=== PATIENT | female | born 1950 | race Caucasian/White ===

== ENCOUNTER → 2016-04-06 | Day surgery (SDC) | payer OTHER ==
[~2016-04-06] MED LIST: Lidocain 1% EPI 1:100,000 * 30 ML MDV ONE
[2016-04-06 13:22] VITALS: BP 140/39
--- NOTE | 2016-04-07 00:03 | OP ---
DATE OF OPERATION: 04/06/16 [facility] DATE OF : 50 SURGEON: Dionicio Rawls MD ASSIGNMENT OFFICER: CANDELARIA Gonzalez ANESTHESIOLOGIST: None. ANESTHESIA: Local only with 1% lidocaine with epinephrine. PRE-OP DIAGNOSIS: Right carpal tunnel syndrome. POST-OP DIAGNOSIS: Right carpal tunnel syndrome. OPERATIVE PROCEDURE: Right open carpal tunnel release. INDICATIONS: Radha is a 65-year-old female with right carpal tunnel syndrome. She has tried nonoperative measures and has failed to improve. We talked about risks and benefits including the risk of nerve injury and chronic neuropathic pain amongst others. She elected to proceed. ESTIMATED BLOOD LOSS: 5 mL. COMPLICATIONS: None. FINDINGS: As expected. DESCRIPTION OF PROCEDURE: Radha was seen in the preoperative holding area and the correct side and site were marked. We then went ahead and had a time- out, and then I infiltrated the operative area with 1% lidocaine with epinephrine, a total of 15 mL. We then came back to the operating room after about 20 minutes and the arm was prepped and draped in the usual fashion and a formal time-out was performed. I then went ahead and made a longitudinal incision in the standard location of the carpal tunnel incision. Dissection was carried down through the skin, subcutaneous tissue, and palmar fascia. The transverse carpal ligament was identified and prior to opening it, I went ahead and made a subcutaneous tunnel just superficial to the deep antebrachial fascia to a level about 4 to 5 cm proximal to the volar wrist flexion crease. I then went ahead and released the transverse carpal ligament just off the radial border of the hook of the hamate. This was done from distal to proximal until I got to the proximal aspect of the incision. I then placed a Daniela retractor in the tunnel I had made and retracted the skin and subcutaneous tunnel superficially. Under direct visualization, I then used the tenotomy scissors to complete the remainder of the release of the transverse carpal ligament and the distal antebrachial fascia to a level about 4 to 5 cm proximal to the volar wrist flexion crease. I then went ahead and checked the release distally and proximally. There was absolutely no compression on the nerve. I then went ahead and irrigated the wound and closed the skin with some 4-0 nylon suture. She tolerated the procedure well and she was taken to the recovery room in stable condition. Please note that the wounds were dressed with Xeroform, 4x4's , sterile Webril, and an Gabriel wrap. [id number]/[facility] #: [id number] SANTY
== END | disposition home or self-care (01) ==
LOC: OREAST 11:22
PROVIDERS: ATTEND Orthopaedic Surgery Hand Surgery
DX: G56.01 Carpal tunnel syndrome, right upper limb (principal)

== ENCOUNTER 2019-10-04 11:17 | Observation (INO) ==
[2019-10-04] MEDS ORDERED: NS 0.9% 1000 ml BAG 1,000 ML IV ONE (11:28)
[2019-10-04 11:56] LABS: ABS Eosinophils 0.1 10^3/ul (0-0.6); ABS Lymphocytes 1.8 10^3/ul (1.0-4.8); ABS Monocytes 0.6 10^3/ul (0-0.8); ABS Neutrophils 4.8 10^3/ul (1.5-7.7); Eosinophil % 1.3 %; Hematocrit 44 % (35-47); Lymphocyte % 24.5 %; Mean Corpuscular HGB Conc 34 g/dL (31-36); Mean Corpuscular Hemoglobin 30 pg (27-31); Mean Corpuscular Volume 89 fL (80-97); Mean Platelet Volume 8.2 fL (7.4-10.4); Nucleated Red Blood Cells % 0.1; Platelet Count 215 10^3/uL (150-450); Red Blood Count 4.94 10^6 /uL (3.70-4.87); Red Cell Distribution Width 13 % (10-15); White Blood Count 7.3 10^3/uL (3.5-10.8)
[2019-10-04 12:10] LABS: Activated Partial Thrombo Time 33.7 seconds (26.0-38.0); INR 0.98 (0.82-1.09)
[2019-10-04 12:15] LABS: Albumin 4.2 g/dL (3.2-5.2); BUN/Creatinine Ratio 22.1 (8-20); Calcium 9.5 mg/dL (8.6-10.3); EGFR African American 103.8 (>60); EGFR Non-African American 85.8 (>60); Globulin 4.3 g/dL (2-4); HDL Cholesterol 55.3 mg/dL; Potassium 3.6 mmol/L (3.5-5.0); Total Bilirubin 0.4 mg/dL (0.2-1.0); Total Protein 8.5 g/dL (6.4-8.9)
[2019-10-04] MEDS ORDERED: Ondansetron 4 mg VIAL 2 MG/ML 2 ml VIAL IV PRN (14:03)
[2019-10-04 14:32] LABS: TSH Ultra Thyroid Stim Horm 3.71 mcIU/mL (0.34-5.60)
[2019-10-04] MEDS ORDERED: Enoxaparin 40 MG/0.4 ML SYR SUBCUT SCH (15:00)
[2019-10-04] MEDS ORDERED: Gadoteridol (CONTRAST) 279.3 MG/ML 10 ML IV ONE (16:38)
[2019-10-05] MEDS ORDERED: Meloxicam 7.5 mg TAB (NF) PO SCH (09:00)
[2019-10-05 13:01] VITALS: BP 133/74
== END 2019-10-05 14:10 | disposition home or self-care (01) ==
LOC: MEDTELE 11:17 → ED 11:17 → MEDTELE 15:52
PROVIDERS: ADMIT Internal Medicine; ATTEND Internal Medicine

== ENCOUNTER 2023-08-31 09:59 | Observation (INO) ==
[~2023-08-31 09:59] MED LIST changes: +Acetaminophen IV 1 GM/100ML 1,000 MG/100 ML BAG IV ONE; -Lidocain 1% EPI 1:100,000 * 30 ML MDV ONE; +Lidocaine 2% PF 5 ML VIAL ONE; +Propofol 10 MG/ML 20 ML BTL ONE
[2023-08-31] MEDS ORDERED: ceFAZolin 2 GM PREMIX 2 GM/50 ML BAG ONE (10:25)
[2023-08-31] MEDS ORDERED: Tranexamic Acid 1 GM/100ML BAG 2,000 MG/200 ML BAG IV ONE (10:25)
[2023-08-31 10:36] LABS: Rapid COVID-19 Molecular Undetected (Undetected)
[2023-08-31] MEDS ORDERED: Propofol 10 MG/ML 20 ML BTL ONE (10:50)
[2023-08-31] MEDS ORDERED: KETAMINE HCL 10 MG/ML 20 ml VIAL (200 MG) ONE (10:50)
[2023-08-31] MEDS ORDERED: ROPIVACAINE 5 MG/ML 30 ML BTL (0.5%) ONE ×2 (11:17→11:44)
[2023-08-31] MEDS ORDERED: Midazolam 2 mg/2 ml VIAL 1 mg/ml 2 ml VIAL (2 mg) ONE ×2 (11:17→12:24)
[2023-08-31] MEDS ORDERED: Buffered Lidocaine 1% SYRIN 1 ml INTRADERM ONE (11:41)
[2023-08-31] MEDS ORDERED: Metoclopramide 5 MG/ML VIAL (10 mg) IV PRN (11:41)
[2023-08-31] MEDS ORDERED: Naloxone 0.4 mg VIAL 0.4 mg/ml 1 ml VIAL IV PRN (11:41)
[2023-08-31] MEDS ORDERED: fentaNYL 100 mcg/2 ml 50 MCG/ML VIAL IV PRN (11:41)
[2023-08-31] MEDS ORDERED: Acetaminophen IV 1 GM/100ML 1,000 MG/100 ML BAG IV ONE ×2 (11:41→13:06)
[2023-08-31] MEDS ORDERED: Scopolamine 1 mg/72hr PATCH TRANSDERM ONE (11:41)
[2023-08-31] MEDS ORDERED: Ondansetron 4 mg VIAL 2 MG/ML 2 ml VIAL IV PRN ×2 (11:41→15:13)
[2023-08-31] MEDS ORDERED: NS 0.45% 1000 ml BAG 1,000 ML IV SCH (12:00)
[2023-08-31] MEDS ORDERED: Lactated Ringers 1000 ml BAG 1,000 ML IV SCH (12:00)
[2023-08-31] MEDS ORDERED: Dexamethasone IV 4 MG/ML VIAL 1 ml VIAL ONE (13:06)
[2023-08-31] MEDS ORDERED: Ondansetron 4 mg VIAL 2 MG/ML 2 ml VIAL ONE (13:06)
[2023-08-31] MEDS ORDERED: Lactulose 30 ml UDC PO PRN (15:13)
[2023-08-31] MEDS ORDERED: Magnesium Hydroxide LIQ 30 ML UDC PO PRN (15:13)
[2023-08-31] MEDS ORDERED: Ondansetron ODT 4 mg TAB 4 MG TAB PO PRN (15:13)
[2023-08-31] MEDS ORDERED: Calcium Carb (TUMS) 500 mg CHEW TAB PO PRN (15:13)
[2023-08-31] MEDS ORDERED: Morphine 2 MG/ML SYRINGE IV PRN (15:13)
[2023-08-31] MEDS: Lactated Ringers 1000 ml BAG 1,000 ML IV SCH (17:56)
[2023-08-31] MEDS: Magnesium Hydroxide LIQ 30 ML UDC PO SCH (22:08)
[2023-08-31] MEDS: ceFAZolin 2 GM in NS PREMIX 2 GM/100 ML BAG IVPB SCH (22:12)
[2023-09-01 05:51] LABS: Hematocrit 35.1 % (35-45); Hemoglobin 12.1 g/dL (11.5-14.3); Mean Platelet Volume 8.8 fL (7.5-11.2); Platelet Count 223 10^3/uL (150-450)
[2023-09-01 06:24] LABS: Calcium 8.4 mg/dL (8.6-10.3); Creatinine, Serum 0.72 mg/dL (0.51-0.95); Potassium 4.5 mmol/L (3.5-5.0); eGFR CKD-EPI 88.2 (>60)
[2023-09-01] MEDS: Vitamin THERAPEUTIC TAB PO SCH (08:15)
[2023-09-01 09:56] VITALS: BP 145/75
== END 2023-09-01 13:02 | disposition home or self-care (01) ==
LOC: OR 09:59 → SSU 09:59
PROVIDERS: ADMIT Orthopaedic Surgery Adult Reconstructive Orthopaedic Surgery; ATTEND Orthopaedic Surgery Adult Reconstructive Orthopaedic Surgery